=== PATIENT | female | born 1945 | race Caucasian/White ===

== ENCOUNTER 2018-09-17 08:02 | Day surgery (SDC) | payer OTHER ==
[2018-09-10 17:52] VITALS: BMI 31.4
[2018-09-17] MEDS: CIPROFLOXACIN 0.3% EYE DROPS 5 ML BOTTLE ONE ×3 (09:05→09:15)
[2018-09-17] MEDS: TROPICAMIDE 1% OPHTH SOLN 15 ML BOTTLE ONE ×3 (09:05→09:15)
[2018-09-17] MEDS: CYCLOPENTOLATE 2% OPHTH SOLN 2 ML BOTTLE ONE ×3 (09:05→09:15)
[2018-09-17] MEDS: PHENYLEPHRINE 2.5% OPHTH SOLN 15 ML BOTTLE ONE ×3 (09:05→09:15)
[2018-09-17] MEDS ORDERED: CARBACHOL 0.01% INTRA-OCULAR 1.5 ML VIAL ONE (09:43)
[2018-09-17] MEDS ORDERED: NEO/POLYMYX B SULF/DEXAMETH OPHTHALMIC 5ML BOTTLE ONE (09:43)
[2018-09-17] MEDS ORDERED: BSS (NA/CA/MG/K) BALANCED SALT SOLUTION OPHTH SOLN 15 ML BOTTLE ONE (09:43)
[2018-09-17] MEDS ORDERED: TRYPAN BLUE 0.5 ML DISP.SYRIN ONE (09:56)
[2018-09-17] MEDS ORDERED: MIDAZOLAM HCL 2 MG/2 ML SINGLE DOSE VIAL ONE (09:57)
[2018-09-17 11:00] VITALS: BP 130/65; PULSE 77; TEMP 50
--- NOTE | 2018-09-18 05:51 | OP ---
DATE OF OPERATION: 09/17/2018 OPERATIVE PROCEDURE: Lens Phacoemulsification with Posterior Chamber Intraocular Lens Placement Left Eye PREOPERATIVE DIAGNOSIS: Visually Significant Cataract of Left Eye POSTOPERATIVE DIAGNOSIS: Visually Significant Cataract of Left Eye SURGEON: Earle Eddy M.D. ANESTHESIA: MAC PROCEDURE: The patient was brought to the operating room and placed under monitored anesthesia care by Anesthesia. A drop of Tetracaine was then placed over the left eye. The patient was then prepped and draped in the usual sterile manner. A speculum was then placed over the left eye. The eye was then well irrigated with copious amounts of BSS (balanced salt solution). The operating microscope was then moved into position. A paracentesis was performed using a 15 degree blade. At this point 0.5 mL of 1% preservative-free lidocaine was injected into the anterior chamber. Amvisc plus was then injected into the anterior chamber. A clear corneal incision was then formed using a 2.2 mm keratome. A capsulorrhexis was then performed in a continuous circular fashion beginning with a cystotome, completed with an Utratas forceps. Hydrodissection was then performed using BSS on a cannula. The phaco probe was then introduced through the corneal wound and the cataract was removed using the phaco chop technique. Approximately 3 seconds of absolute phaco time was used. The remaining cortex was then removed using irrigation and aspiration with an I/A probe. The capsule was then filled with regular Amvisc and the capsule was noted to be intact. A previously selected foldable posterior chamber intraocular lens was then injected into the capsule through the corneal wound using a lens injector. It was then dialed into position using a Sinskey hook. The Amvisc was then removed using irrigation and aspiration. Miostat was then injected through the paracentesis to constrict the pupil. The paracentesis and corneal wound were then hydrated and noted to be water tight. A drop of Maxitrol was then placed over the eye. The speculum was removed and clear shield was taped over the eye. The patient tolerated the procedure well and there were no surgical complications. The patient was asked to follow up in my office the next day. EARLE EDDY M.D. [id number]
== END 2018-09-17 11:00 | disposition home or self-care (01) ==
LOC: FASU 08:02
PROVIDERS: ATTEND Ophthalmology
PROC: 08RK3JZ Replacement of Left Lens with Synthetic Substitute, Percutaneous Approach (ICD-10-PCS; principal; 2018-09-17 10:02)
DX: H26.8 Other specified cataract (principal)

== ENCOUNTER 2019-03-04 08:18 | Day surgery (SDC) | payer OTHER ==
[2019-03-02 09:43] VITALS: BMI 32.9
[2019-03-04] MEDS: PHENYLEPHRINE 2.5% OPHTH SOLN 15 ML BOTTLE ONE ×3 (08:40→08:50)
[2019-03-04] MEDS: CYCLOPENTOLATE 2% OPHTH SOLN 2 ML BOTTLE ONE ×3 (08:40→08:50)
[2019-03-04] MEDS: TROPICAMIDE 1% OPHTH SOLN 15 ML BOTTLE ONE ×3 (08:40→08:50)
[2019-03-04] MEDS: CIPROFLOXACIN 0.3% EYE DROPS 5 ML BOTTLE ONE ×3 (08:40→08:50)
[2019-03-04] MEDS ORDERED: LIDOCAINE 1% P/F 10 MG/ML VIAL ONE (08:43)
[2019-03-04] MEDS ORDERED: BSS (NA/CA/MG/K) BALANCED SALT SOLUTION OPHTH SOLN 15 ML BOTTLE ONE (08:43)
[2019-03-04] MEDS ORDERED: EPINEPHrine/PF 1 MG/1 ML (1:1,000) AMPULE ONE (08:44)
[2019-03-04] MEDS ORDERED: CARBACHOL 0.01% INTRA-OCULAR 1.5 ML VIAL ONE (08:44)
[2019-03-04] MEDS ORDERED: NEO/POLYMYX B SULF/DEXAMETH OPHTHALMIC 5ML BOTTLE ONE (08:44)
[2019-03-04] MEDS ORDERED: MIDAZOLAM HCL 2 MG/2 ML SINGLE DOSE VIAL ONE ×2 (09:53→10:00)
[2019-03-04 10:23] VITALS: TEMP 98.1
[2019-03-04 11:00] VITALS: BP 115/64; PULSE 80
--- NOTE | 2019-03-04 13:41 | OP ---
DATE OF OPERATION: 03/04/2019 OPERATIVE PROCEDURE: Lens Phacoemulsification with Posterior Chamber Intraocular Lens Placement, Right Eye PREOPERATIVE DIAGNOSIS: Visually Significant Cataract of Right Eye POSTOPERATIVE DIAGNOSIS: Visually Significant Cataract of Right Eye SURGEON: Earle Eddy M.D. ANESTHESIA: MAC PROCEDURE: The patient was brought to the operating room and placed under monitored anesthesia care by Anesthesia. A drop of Tetracaine was then placed over the right eye. The patient was then prepped and draped in the usual sterile manner. A speculum was then placed over the right eye. The eye was then well irrigated with copious amounts of BSS (balanced salt solution). The operating microscope was then moved into position. A paracentesis was performed using a 15 degree blade. At this point 0.5 mL of 1% preservative free-lidocaine was injected into the anterior chamber. Amvisc plus was then injected into the anterior chamber. A clear corneal incision was then formed using a 2.2 mm keratome. A capsulorrhexis was then performed in a continuous circular fashion beginning with a cystotome completed with an Utratas forceps. Hydrodissection was then performed using BSS on a cannula. The phaco probe was then introduced through the corneal wound and the cataract was removed using the phaco chop technique. Approximately 3 seconds of absolute phaco time was used. The remaining cortex was then removed using irrigation and aspiration with an I/A probe. The capsule was then filled with regular Amvisc and the capsule was noted to be intact. A previously selected foldable posterior chamber intraocular lens was then injected into the capsule through the corneal wound using a lens injector. It was then dialed into position using a Sinskey hook. The Amvisc was then removed using irrigation and aspiration. Miostat was then injected through the paracentesis to constrict the pupil. The paracentesis and corneal wound were then hydrated and noted to be water tight. A drop of Maxitrol was then placed over the eye. The speculum was removed and clear shield was taped over the eye. The patient tolerated the procedure well and there were no surgical complications. The patient was asked to follow up in my office the next day. EARLE EDDY M.D. [id number]
== END 2019-03-04 11:00 | disposition home or self-care (01) ==
LOC: FASU 08:18
PROVIDERS: ATTEND Ophthalmology
PROC: 08RJ3JZ Replacement of Right Lens with Synthetic Substitute, Percutaneous Approach (ICD-10-PCS; principal; 2019-03-04 10:04)
DX: H26.8 Other specified cataract (principal)

== ENCOUNTER 2022-07-25 16:27 | Inpatient (IN) | payer OTHER ==
[2022-07-25 18:08] LABS: HEMATOCRIT 36.1 % (32.4-45.2); MCH 28.4 pg (25.7-33.7); MCHC 33.2 g/dl (32.0-36.0); MEAN CELL VOLUME 85.5 fl (80-96); MEAN PLT VOLUME 9.7 fl (7.5-11.1); PLATELET COUNT 244.1 10^3/uL (134-434); RBC 4.22 10^6/uL (3.60-5.2); WHITE BLOOD COUNT 14.4 10^3/uL (4.0-10.8)
[2022-07-25 18:28] LABS: ALBUMIN 3.8 g/dl (3.4-5.0); BILIRUBIN,TOTAL 0.9 mg/dl (0.2-1); CALCIUM 10.6 mg/dl (8.5-10); CREATININE 1.1 mg/dl (0.55-1.3); POTASSIUM 3.4 mmol/L (3.5-5.1); TOT PROT 6.8 g/dl (6.4-8.2)
[2022-07-25 18:32] LABS: PLATELET ESTIMATE ADEQUATE
[2022-07-25] MEDS ORDERED: ASPIRIN 81 MG CHEWABLE TABLETS PO ONE (19:10)
[2022-07-25] MEDS ORDERED: ASPIRIN 81 MG CHEWABLE TABLETS ONE (19:18)
[2022-07-25] MEDS ORDERED: POTASSIUM CHLORIDE TABS 10 MEQ TABLET.ER (FP) PO ONE (19:42)
[2022-07-25] MEDS ORDERED: POTASSIUM CHLORIDE TABS 20 MEQ TABLET.ER (FP) PO ONE (19:59)
[2022-07-26 00:45] VITALS: BMI 32.3
[2022-07-26] MEDS ORDERED: ALPRAZolam 0.25 MG TABLET PO PRN (02:26)
[2022-07-26 07:52] LABS: INR 1.15 (0.83-1.09); PROTHROMBIN TIME (PATIENT) 13.2 SEC (9.7-13.0)
[2022-07-26 08:22] LABS: ALBUMIN 3.6 g/dl (3.4-5.0); BILIRUBIN,TOTAL 1.4 mg/dl (0.2-1); CALCIUM 10.8 mg/dl (8.5-10); MAGNESIUM 1.8 mg/dL (1.8-2.4); TOT PROT 6.4 g/dl (6.4-8.2)
[2022-07-26] MEDS: ESCITALOPRAM OXALATE 20 MG TABLET PO SCH (09:36)
[2022-07-26] MEDS ORDERED: VALSARTAN 160 MG TABLET PO SCH (10:00)
[2022-07-26 10:06] LABS: BASO % 0.7 % (0-2.0); EOS % 2.3 % (0-4.5); HEMATOCRIT 32.8 % (32.4-45.2); HEMOGLOBIN 11.1 GM/dL (10.7-15.3); LYMPH % 21.6 % (8-40); MCH 27.8 pg (25.7-33.7); MCHC 33.8 g/dl (32.0-36.0); MEAN CELL VOLUME 82.5 fl (80-96); MEAN PLT VOLUME 9.8 fl (7.5-11.1); MONO % 5.8 % (3.8-10.2); NEUT % 69.6 % (42.8-82.8); PLATELET COUNT 248 10^3/uL (134-434); RBC 3.98 M/mm3 (3.60-5.2); RDW 15.2 % (11.6-15.6); WHITE BLOOD COUNT 12.1 K/mm3 (4.0-10.0)
[2022-07-26 10:08] LABS: N-TERMINAL BNP 8872.3 pg/ml (5-450)
[2022-07-26] MEDS ORDERED: SODIUM CHLORIDE 0.9% 500 ML INFUS.BAG IV ONE (11:02)
[2022-07-26] MEDS: ENOXAPARIN NA (PORCINE) 80 MG/0.8 ML DISP.SYRIN SQ SCH (13:12)
[2022-07-27] MEDS: ENOXAPARIN NA (PORCINE) 80 MG/0.8 ML DISP.SYRIN SQ SCH ×2 (02:31→12:31)
[2022-07-27] MEDS: ESCITALOPRAM OXALATE 20 MG TABLET PO SCH (09:13)
[2022-07-27] MEDS ORDERED: ESCITALOPRAM OXALATE 20 MG TABLET PO SCH (15:15)
[2022-07-27] MEDS: LORATADINE 10 MG TABLET PO SCH (17:02)
[2022-07-27] MEDS: ALPRAZolam 0.25 MG TABLET PO PRN (21:29)
[2022-07-27] MEDS: APIXABAN 5 MG TABLET PO SCH (21:29)
[2022-07-28 07:24] LABS: BASO % 0.4 % (0-2.0); EOS % 3.3 % (0-4.5); HEMATOCRIT 31.4 % (32.4-45.2); HEMOGLOBIN 10.7 GM/dL (10.7-15.3); LYMPH % 28.9 % (8-40); MCH 28.2 pg (25.7-33.7); MCHC 34.1 g/dl (32.0-36.0); MEAN CELL VOLUME 82.6 fl (80-96); MEAN PLT VOLUME 9.9 fl (7.5-11.1); MONO % 7.2 % (3.8-10.2); NEUT % 60.2 % (42.8-82.8); PLATELET COUNT 228 10^3/uL (134-434); RDW 15.3 % (11.6-15.6); WHITE BLOOD COUNT 10.3 K/mm3 (4.0-10.0)
[2022-07-28 07:55] LABS: CALCIUM 10.5 mg/dL (8.5-10.1); MAGNESIUM 1.8 mg/dL (1.8-2.4)
[2022-07-28 07:56] LABS: BLOOD UREA NITROGEN 23.2 mg/dL (7-18)
[2022-07-28 07:58] LABS: PHOSPHOROUS 3.6 mg/dL (2.5-4.9)
[2022-07-28 08:00] LABS: BILIRUBIN,TOTAL 1.2 mg/dL (0.2-1); TOT PROT 6.1 g/dl (6.4-8.2)
[2022-07-28] MEDS: LORATADINE 10 MG TABLET PO SCH (09:05)
[2022-07-28] MEDS: APIXABAN 5 MG TABLET PO SCH ×2 (09:05→21:41)
[2022-07-28] MEDS: ESCITALOPRAM OXALATE 20 MG TABLET PO SCH (09:05)
[2022-07-28] MEDS: ALPRAZolam 0.25 MG TABLET PO PRN ×2 (14:54→23:14)
[2022-07-28] MEDS: METHIMAZOLE 5 MG TABLET PO SCH (21:42)
[2022-07-29] MEDS: METHIMAZOLE 5 MG TABLET PO SCH ×3 (06:19→21:31)
[2022-07-29] MEDS: LORATADINE 10 MG TABLET PO SCH (09:40)
[2022-07-29] MEDS: ESCITALOPRAM OXALATE 20 MG TABLET PO SCH (09:40)
[2022-07-29] MEDS: APIXABAN 5 MG TABLET PO SCH ×2 (09:40→21:31)
[2022-07-29] MEDS ORDERED: SODIUM CHLORIDE NASAL SPRAY 44 ML BOTTLE NS PRN (11:01)
[2022-07-29] MEDS ORDERED: NAPHAZOLINE 0.1% OPHTHALMIC SOLUTION 15 ML BOTTLE OU PRN (11:04)
[2022-07-29] MEDS ORDERED: INSULIN (NOVOLOG) ASPART 100 UNITS/ML 10ML VIAL ONE (12:06)
[2022-07-30] MEDS: ALPRAZolam 0.25 MG TABLET PO PRN (00:07)
[2022-07-30] MEDS: METHIMAZOLE 5 MG TABLET PO SCH ×3 (05:58→22:19)
[2022-07-30 08:58] LABS: POTASSIUM 4.2 mmol/L (3.5-5.1)
[2022-07-30 09:03] LABS: CALCIUM 10.3 mg/dL (8.5-10.1)
[2022-07-30 09:04] LABS: BLOOD UREA NITROGEN 33.6 mg/dL (7-18)
[2022-07-30] MEDS: LORATADINE 10 MG TABLET PO SCH (09:54)
[2022-07-30] MEDS: ESCITALOPRAM OXALATE 20 MG TABLET PO SCH (09:54)
[2022-07-30] MEDS: APIXABAN 5 MG TABLET PO SCH ×2 (09:54→22:19)
[2022-07-30] MEDS ORDERED: ALPRAZolam 0.25 MG TABLET PO PRN (22:02)
[2022-07-31] MEDS: METHIMAZOLE 5 MG TABLET PO SCH ×4 (06:36→21:39)
[2022-07-31 08:15] LABS: BASO % 0.8 % (0-2.0); EOS % 4.8 % (0-4.5); HEMATOCRIT 30.7 % (32.4-45.2); HEMOGLOBIN 10.2 GM/dL (10.7-15.3); LYMPH % 22.7 % (8-40); MCHC 33.3 g/dl (32.0-36.0); MEAN PLT VOLUME 9.8 fl (7.5-11.1); MONO % 6.5 % (3.8-10.2); NEUT % 65.2 % (42.8-82.8); PLATELET COUNT 230 10^3/uL (134-434); RBC 3.65 M/mm3 (3.60-5.2); RDW 15.7 % (11.6-15.6); WHITE BLOOD COUNT 9.1 K/mm3 (4.0-10.0)
[2022-07-31 08:35] LABS: POTASSIUM 4.7 mmol/L (3.5-5.1)
[2022-07-31 08:45] LABS: BLOOD UREA NITROGEN 32.3 mg/dL (7-18); CALCIUM 10.3 mg/dL (8.5-10.1)
[2022-07-31 08:46] LABS: MAGNESIUM 2.1 mg/dL (1.8-2.4)
[2022-07-31 08:48] LABS: CREATININE 0.9 mg/dL (0.55-1.3)
[2022-07-31] MEDS ORDERED: ACETAMINOPHEN 500 MG TABLET (FP) PO PRN ×2 (09:09→13:30)
[2022-07-31 09:42] VITALS: RESP 18
[2022-07-31] MEDS: APIXABAN 5 MG TABLET PO SCH ×2 (09:43→21:37)
[2022-07-31] MEDS: ESCITALOPRAM OXALATE 20 MG TABLET PO SCH (09:44)
[2022-07-31] MEDS ORDERED: LORATADINE 10 MG TABLET PO SCH (10:00)
[2022-07-31] MEDS ORDERED: guaiFENesin/D-METHORPHAN HB 10 ML UNIT-DOSE CUPS PO PRN (12:32)
[2022-07-31] MEDS ORDERED: NAPHAZOLINE 0.1% OPHTHALMIC SOLUTION 15 ML BOTTLE OU PRN (13:30)
[2022-07-31] MEDS ORDERED: SODIUM CHLORIDE NASAL SPRAY 44 ML BOTTLE NS PRN (13:30)
[2022-07-31] MEDS ORDERED: ALPRAZolam 0.25 MG TABLET PO PRN (13:30)
[2022-07-31] MEDS ORDERED: TETRAHYDROZOLINE HCL EYE DROPS OU PRN (14:02)
[2022-08-01] MEDS: METHIMAZOLE 5 MG TABLET PO SCH (06:30)
[2022-08-01 08:06] LABS: BASO % 0.8 % (0-2.0); EOS % 4.8 % (0-4.5); HEMATOCRIT 29.2 % (32.4-45.2); LYMPH % 22.7 % (8-40); MCH 28.3 pg (25.7-33.7); MCHC 34.1 g/dl (32.0-36.0); MEAN CELL VOLUME 82.9 fl (80-96); MEAN PLT VOLUME 9.2 fl (7.5-11.1); MONO % 6.6 % (3.8-10.2); NEUT % 65.1 % (42.8-82.8); PLATELET COUNT 232 10^3/uL (134-434); RBC 3.52 M/mm3 (3.60-5.2); RDW 15.3 % (11.6-15.6); WHITE BLOOD COUNT 8.8 K/mm3 (4.0-10.0)
[2022-08-01 08:41] LABS: POTASSIUM 4.2 mmol/L (3.5-5.1)
[2022-08-01 08:51] LABS: ALBUMIN 2.9 g/dl (3.4-5.0); CALCIUM 10.4 mg/dL (8.5-10.1)
[2022-08-01 08:53] LABS: CREATININE 0.9 mg/dL (0.55-1.3); PHOSPHOROUS 2.8 mg/dL (2.5-4.9)
[2022-08-01 08:55] LABS: BILIRUBIN,TOTAL 0.6 mg/dL (0.2-1); TOT PROT 5.6 g/dl (6.4-8.2)
[2022-08-01] MEDS: APIXABAN 5 MG TABLET PO SCH (09:35)
[2022-08-01] MEDS ORDERED: METHIMAZOLE 5 MG TABLET PO SCH (10:00)
[2022-08-01] MEDS ORDERED: ESCITALOPRAM OXALATE 20 MG TABLET PO SCH (10:00)
[2022-08-01] MEDS ORDERED: LORATADINE 10 MG TABLET PO SCH (10:00)
[2022-08-01 11:52] VITALS: PULSE 94
[2022-08-01 15:32] VITALS: BP 138/57; TEMP 98.5
[2022-08-02 17:07] LABS: FREE KAPPA,SERUM 19.6 mg/L (3.3-19.4)
== END 2022-08-01 16:19 | DRG 134 ==
LOC: FER 16:27 → FM/S 22:29 → OBSVTOIN 07-26 13:12 → J4W 07-26 18:34 → J5S 07-31 13:21
PROVIDERS: ADMIT Student in an Organized Health Care Education/Training Program; ATTEND Internal Medicine
DX: I26.99 Other pulmonary embolism without acute cor pulmonale (principal); E05.90 Thyrotoxicosis, unspecified without thyrotoxic crisis or storm; E83.52 Hypercalcemia; I24.8 Other forms of acute ischemic heart disease; I82.4Y2 Acute embolism and thrombosis of unspecified deep veins of left proximal lower extremity; I10 Essential (primary) hypertension; F32.A Depression, unspecified; F41.9 Anxiety disorder, unspecified; E87.6 Hypokalemia; I82.432 Acute embolism and thrombosis of left popliteal vein
CPT/HCPCS: 0241U-QW; 36415; 71045-TC-FY; 71275-TC; 80048; 80053; 80061; 81003; 82306; 83735; 83880; 83883; 83970; 84100; 84155; 84165; 84439; 84443; 84484; 85025; 85027; 85379; 85610; 93005; 93306-TC; 93970-TC; 94761; 97116-GP; 97162-GP; 99285-25; G0378

== ENCOUNTER 2023-09-19 14:19 | Emergency (ER) | payer OTHER ==
[2023-09-19 14:32] VITALS: RESP 18; BMI 30.3
[2023-09-19 16:19] LABS: VENOUS O2 SATURATION 31.5 % (70-80); VENOUS PH 7.353 (7.310-7.410)
[2023-09-19 16:22] LABS: BASO % 0.5 % (0-2.0); HEMATOCRIT 33.4 % (32.4-45.2); HEMOGLOBIN 11.1 GM/dL (10.7-15.3); LYMPH % 17.8 % (8-40); MCH 27.9 pg (25.7-33.7); MCHC 33.3 g/dl (32.0-36.0); MEAN CELL VOLUME 83.9 fl (80-96); MEAN PLT VOLUME 8.2 fl (7.5-11.1); MONO % 5.7 % (3.8-10.2); PLATELET COUNT 235 10^3/uL (134-434); RBC 3.98 M/mm3 (3.60-5.2); RDW 15.9 % (11.6-15.6); WHITE BLOOD COUNT 8.7 K/mm3 (4.0-10.0)
[2023-09-19 16:29] LABS: INR 1.48 (0.83-1.09); PROTHROMBIN TIME (PATIENT) 16.8 SEC (9.7-13.0)
[2023-09-19 16:32] LABS: ACTIVATED PTT 35.6 SECONDS (25.2-36.5)
[2023-09-19 16:44] LABS: CALCIUM 10.8 mg/dL (8.5-10.1)
[2023-09-19 16:45] LABS: ALBUMIN 3.7 g/dl (3.4-5.0); BLOOD UREA NITROGEN 22.4 mg/dL (7-18)
[2023-09-19 16:50] LABS: BILIRUBIN,TOTAL 0.9 mg/dL (0.2-1); TOT PROT 6.4 g/dl (6.4-8.2)
[2023-09-19 22:05] VITALS: BP 123/74; PULSE 76; TEMP 98.3
== END 2023-09-19 22:06 | disposition home or self-care (01) ==
LOC: JER 14:19
DX: R07.89 Other chest pain (principal); M79.89 Other specified soft tissue disorders; R20.0 Anesthesia of skin; R06.02 Shortness of breath
CPT/HCPCS: 36415; 71045-TC-FY; 71275-TC; 80053; 82803; 84484; 85025; 85610; 85730; 93005; 93010; 93971-TC; 99285-25; Q9967